=== PATIENT | female | born 1955 | race Caucasian/White ===

== ENCOUNTER → 2020-04-16 | Outpatient (CLI) | payer OTHER ==
[~2020-04-16] MED LIST: AMLODIPINE BESY10 MG PO; BREO ELLIPTA 11 EACH INH; FISH OIL 1,0001 EAC9 PO; HYDROCHLOROTHIA25 M2 PO; LOSARTAN POTAS100 MG PO; METFORMIN HCL500 MG PO; MULTI VITAMIN1 EACH PO; PRAVACHOL 20 MG20 M1 PO; TRULICITY1.5 MG/0.5 SUBQ; VENTOLIN HFA INH8 GM INH; VITAMIN B-121000 MC2 SUBLING
== END ==
LOC: LAB 10:00
PROVIDERS: ATTEND Internal Medicine Gastroenterology
DX: Z01.812 Encounter for preprocedural laboratory examination (principal); Z20.828 Contact with and (suspected) exposure to other viral communicable diseases

== ENCOUNTER → 2020-04-22 | Outpatient (CLI) | payer OTHER ==
[~2020-04-22] VITALS: Ht 165.1 cm; Wt 103.9 kg
== END | disposition home or self-care (01) ==
LOC: GI 07:48 → EDSTATUS 11:07 → GI 11:51
PROVIDERS: ATTEND Internal Medicine Gastroenterology
DX: Z12.11 Encounter for screening for malignant neoplasm of colon (principal); Z86.010 Personal history of colon polyps; K57.30 Diverticulosis of large intestine without perforation or abscess without bleeding; K64.8 Other hemorrhoids; I10 Essential (primary) hypertension; E11.9 Type 2 diabetes mellitus without complications; E78.00 Pure hypercholesterolemia, unspecified; Z90.710 Acquired absence of both cervix and uterus; Z90.49 Acquired absence of other specified parts of digestive tract; Z98.890 Other specified postprocedural states; Z79.899 Other long term (current) drug therapy
CPT/HCPCS: 62110; 62900